=== PATIENT | male | born 1995 | race Caucasian/White ===

== ENCOUNTER 2017-06-25 07:54 | Emergency (ER) | payer OTHER ==
[~2017-06-25] VITALS: Ht 175.3 cm; Wt 64.4 kg
[2017-06-25 07:58] VITALS: PULSE 57; TEMP 36.4; O2SAT 94; Ht 175.3 cm; Wt 64.4 kg
[2017-06-25] MEDS ORDERED: LISI-729 PO (08:13)
[2017-06-25] MEDS ORDERED: ASPI81TA28 PO (08:13)
[2017-06-25] MEDS ORDERED: LIDOCAINE/EPINEPH/TETRACAINE 1 EA SYR EXT STA (08:29)
--- NOTE | 2017-06-25 08:43 | EMERGENCY ROOM VISIT NOTE ---
ED Visit Note First contact with patient: 08:07 CHIEF COMPLAINT: Facial laceration HISTORY OF PRESENT ILLNESS: This 22-year-old male patient presents emergency department ambulatory, with his mother, complaining of a laceration to the right scalp/forehead. The patient states he was walking outside, when a very large block of ice which she feels was 10-15 pounds heavy fell 10-15 feet, striking him on the head. He states he initially noticed some visual disturbances and became dizzy. He was able to hold onto an object to keep him standing. There was no fall. The patient states now he is feeling okay, however his vision continues to be slightly blurry. There was no loss of consciousness, vomiting, or unusual behavior afterwards. Does report some mild neck pain. No headache, nausea. There is minimal active bleeding. The patient rates the pain as constant, achy and 4/10. The patient's tetanus shot is up to date. The patient's mother states the patient is acting completely normally now. REVIEW OF SYSTEMS: A 6 system review of systems was completed with positives and pertinent negatives listed in the HPI. ALLERGIES: None MEDICATIONS: Aspirin, lisinopril. The patient did not take his medication this morning. 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 He denies drug, alcohol , tobacco use. PHYSICAL EXAM: Vital Signs: Reviewed Nurse's notes, vital signs stable. GENERAL : This is a 22 year old white male, in no acute distress, well-developed, well- nourished. NEURO: The patient is alert and oriented to person place and time. No focal neurological defects. EYES: Pupils are round, equal, and react to light. EOMI. EARS: No hemotympanum. NECK: Supple. No cervical spine tenderness. FACE: No facial bone tenderness or mandibular tenderness. The mouth can open fully. The teeth are well aligned. No loose or chipped teeth. SKIN: There is a 2 cm laceration on the right side of the forehead/scalp. The edges gape apart with traction. There is minimal active bleeding and no foreign material in the wound. There are no deep structures present. Capillary refill less than two seconds. Normal sensation to light and sharp touch. RADIOLOGY: HEAD CT NONCONTRAST CT DOSE: 537.48 mGy.cm HISTORY: head injury, right scalp lac/contusion TECHNIQUE: Multiaxial CT images of the head were performed without the use of intravenous contrast. Automated exposure control was utilized for this study. A dose lowering technique was utilized adhering to the principles of ALARA. Comparison: None. Findings: Small retention cysts within the left sphenoid sinus. The mastoid air cells are clear. Mild right frontal scalp swelling. The calvarium and skull base are intact. The ventricles and sulci are within normal limits. There is no mass, hematoma, midline shift, or acute infarct. Impression: No acute intracranial abnormality. Mild right frontal scalp swelling. Electronically signed by: Cameron Morris M.D. 06/25/2017 9:08 AM Dictated Date/Time: 06/25/2017 9:01 AM EMERGENCY DEPARTMENT COURSE: I examined the patient. I discussed with the patient and his mother that based on mechanism of injury, patient's symptoms, and CHIP prediction rule, I do not recommend CT scan. The patient and his mother state they do not feel comfortable leaving here without a CT to rule out bleed due to the patient's history and symptoms. CT scan was ordered and reviewed by myself and radiologist without findings of intracranial hemorrhage or fracture. Verbal consent was obtained to perform the procedure. LET Gel was applied to the wound. Once the patient was anesthetized, the area was sterily draped. The wound was copiously irrigated under pressure with sterile saline. The wound was explored and was as described above. The wound was cleansed with betadine. The laceration was repaired using 8 simple interrupted 6-0 nylon sutures with the wound edges being well approximated. The patient tolerated the procedure well. Hemostasis was achieved. The area was cleaned with sterile saline and dressed with bacitracin ointment. The patient was discharged home in good condition. I attest that I have personally reviewed the patient's current medication list. Patient was found to have normal blood pressure on screening and does not require follow-up. DIFFERENTIAL DIAGNOSIS: Laceration, contusion, abrasion, skull fracture, concussion, intracranial hemorrhage, and others DIAGNOSIS: Facial laceration, head injury Current/Historical Medications Scheduled Aspirin (Aspirin Ec), 81 MG PO DAILY Lisinopril (Zestril), 5 MG PO DAILY Allergies Coded Allergies: No Known Allergies (Unverified , 06/25/17) Vital Signs Date Time Temp Pulse Resp B/P (MAP) Pulse Ox O2 Delivery O2 Flow Rate FiO2 06/25/17 09:42 124/65 06/25/17 07:58 20 06/25/17 07:58 36.4 57 20 125/81 94 Room Air Medications Administered Medications (Trade) Dose Ordered Sig/Renetta Route Start Time Stop Time Status Last Admin Dose Admin Tetracaine/ Epinephrine/ Lidocaine (L.e.t. Gel 4%/ 1:100/0.5%) 1 ea UD STAT EXT 06/25/17 08:29 06/25/17 08:31 DC 06/25/17 08:49 1 EA Acetaminophen (Tylenol Tab) 1,000 mg NOW STAT PO 06/25/17 09:42 06/25/17 09:43 DC 06/25/17 09:54 1,000 MG Departure Information Impression Primary Impression: Laceration of scalp Additional Impression: Head injury, acute, without loss of consciousness Dispostion Home / Self-Care Condition GOOD Referrals No Doctor, Assigned (PCP) Patient Instructions ED Concussion, ED Laceration Facial Sutr Tape, [facility] [place] Additional Instructions You have been treated in the Emergency Department for a Head Injury and laceration. CT Scan of your head/brain demonstrated no acute bleeding or other abnormalities. This does not completely rule out the risk for future damage to the brain. You have received 8 sutures on your forehead/scalp. These sutures are NOT dissolvable and WILL need to be removed by a health care provider in 4-6 days. You can return to the Emergency Department or contact your Primary Care Provider to have the sutures removed. Proper wound care is essential for adequate wound healing and infection prevention. You can shower and clean the wound with soap and water. Do not scour over the wound, pat dry with a towel. Do not submerse the wound (i.e. bathe or dish wash) until the sutures have been removed. You can use an antibiotic ointment with a dressing over the wound for the next 3-4 days. After this time you may leave the wound dry and open to the air. If crust develops over the wound you can use a Q-tip to apply a 1:1 peroxide:water solution to clean the wound. Look for signs of infection of the wound including: increased pain, swelling, foul discharge, streaking, or increased temperature. If any of these are noticed you should return to the Emergency Department for further assessment and treatment. As with any laceration you may have received nerve damage to the surrounding tissues. This damage may or may not be permanent. You should keep the area covered with sunscreen for the first 6 months to 1 year when at risk for exposure to help minimize scarring. You can also use scar reducing creams or Vitamin E oil to help minimize scarring. For pain control, you can use the following [id number] medicines (if >12 yo): Ibuprofen(Motrin, Advil) may be used for fever or pain. Use 600mg every six hours as needed. Take with food. Avoid using more than 2400mg in a 24 hour period. Do not use 2400mg per day for more than three consecutive days without physician direction. Prolonged inappropriate use can lead to stomach upset or ulcers. (AND/OR) Acetaminophen(Tylenol) may be used for fever or pain. Use 1000mg every six hours as needed. Avoid using more than 3000mg in a 24 hour period. You should relax in a quiet, dark place for the rest of the day. Avoid any possible triggers including: cigarette smoke, caffeine, nicotine, chocolate, wine, beer, loud noises or music, or bright lights. You should schedule a follow-up appointment in 2-3 days with your Primary Care Provider or established Neurologist for further evaluation and treatment of your Headache. Return to the Emergency Department if your current symptoms worsen despite treatment course outlined above, or if you develop any of the following symptoms : intractable pain despite aforementioned treatment course, visual disturbances , loss of vision, unilateral weakness or facial drooping, slurring of speech, loss of coordination, or loss of consciousness. Problem Qualifiers Primary Impression: Laceration of scalp Encounter type: initial encounter Qualified Codes: S01.01XA - Laceration without foreign body of scalp, initial encounter Additional Impression: Head injury, acute, without loss of consciousness Encounter type: initial encounter Qualified Codes: S09.90XA - Unspecified injury of head, initial encounter
--- NOTE | 2017-06-25 09:09 | DIAGNOSTIC IMAGING REPORT ---
HEAD CT NONCONTRAST CT DOSE: 537.48 mGy.cm HISTORY: head injury, right scalp lac/contusion TECHNIQUE: Multiaxial CT images of the head were performed without the use of intravenous contrast. Automated exposure control was utilized for this study. A dose lowering technique was utilized adhering to the principles of ALARA. Comparison: None. Findings: Small retention cysts within the left sphenoid sinus. The mastoid air cells are clear. Mild right frontal scalp swelling. The calvarium and skull base are intact. The ventricles and sulci are within normal limits. There is no mass, hematoma, midline shift, or acute infarct. Impression: No acute intracranial abnormality. Mild right frontal scalp swelling. Electronically signed by: Cameron Morris M.D. 06/25/2017 9:08 AM Dictated Date/Time: 06/25/2017 9:01 AM
[2017-06-25 09:42] VITALS: BP 124/65
[2017-06-25] MEDS ORDERED: ACETAMINOPHEN 500 MG TAB PO STA (09:42)
== END 2017-06-25 09:57 | disposition home or self-care (01) ==
LOC: C.EDB 07:58 → C.EDA 09:57
DX: S01.81XA Laceration without foreign body of other part of head, initial encounter (principal); S09.90XA Unspecified injury of head, initial encounter; W20.8XXA Other cause of strike by thrown, projected or falling object, initial encounter; Z98.890 Other specified postprocedural states; Z79.82 Long term (current) use of aspirin; Z79.899 Other long term (current) drug therapy